=== PATIENT | male | born 1950 | race American Indian/Alaskan Native ===

== ENCOUNTER 2016-09-21 09:42 | Outpatient (CLI) | payer MEDICARE ==
--- NOTE | 2016-09-21 10:56 | Fluoroscopy Report ---
UGI INDICATION: Abdominal pain. COMPARISON: None similar. FINDINGS: Upper GI exam performed. Patient swallowed thick and thin barium without any difficulty and tolerated effervescent granules well. Lower cervical spine postsurgical changes noted. Esophagus is normal in course and caliber. No focal suspicious mucosal lesions. Small contrast column stasis along the distal esophagus noted despite upright positioning, incompletely emptying into the stomach with multiple swallows. No demonstrable hiatal hernia or gastroesophageal reflux however. Normal gastric contours without evidence of peptic ulcer disease. Normal duodenal bulb and appearance of the C-loop as well. CONCLUSION: Mild impaired esophageal peristalsis possible without other significant abnormality, as described. Thank you for the opportunity to participate in this patient's care.
--- NOTE | 2016-09-21 14:50 | XRay Report ---
CHEST 2 VIEWS INDICATION: Wheezing. COMPARISON: 07/19/2015 FINDINGS: PA and lateral chest radiographs demonstrate normal cardiomediastinal silhouette and clear, slightly hyperexpanded lungs. No pleural effusions or CHF. Slight aortic atherosclerotic calcifications, bony degenerative changes and partially imaged lower cervical postsurgical changes. CONCLUSION: No acute disease, stable. Thank you for the opportunity to participate in this patient's care.
== END 2016-09-21 09:43 | disposition home or self-care (01) ==
LOC: FLUORO 09:42
PROVIDERS: ATTEND Internal Medicine Gastroenterology
DX: R10.13 Epigastric pain (principal); I70.0 Atherosclerosis of aorta
CPT/HCPCS: 71020; 74241

== ENCOUNTER 2017-10-14 10:08 | Outpatient (CLI) | payer MEDICARE ==
--- NOTE | 2017-10-16 09:39 | Vascular Lab Report ---
LOWER EXTREMITY ARTERIAL DUPLEX: REASON FOR EXAM: Peripheral arterial disease. COMMENTS ON THE RIGHT: Triphasic waveforms are seen proximally. Monophasic waveforms are seen distally. The popliteal artery is occluded. Scattered plaque is seen throughout. Findings are consistent with abnormal perfusion. Findings are not consistent with the ability to heal distal wounds. COMMENTS ON THE LEFT: Triphasic waveforms are seen proximally. Monophasic waveforms are seen distally. Flow is limited in the dorsalis pedis artery. Scattered plaque is seen throughout. Findings are consistent with mildly abnormal perfusion. Findings are consistent with the ability to heal distal wounds. IMPRESSION: RIGHT: Popliteal artery occlusion. Flow is limited in the distal lower extremity. Recommend further evaluation. LEFT:Mildly abnormal arterial flow. Consider further evaluation.
== END 2017-10-14 10:09 | disposition home or self-care (01) ==
LOC: VAS 10:08
PROVIDERS: ATTEND Internal Medicine
DX: I70.213 Atherosclerosis of native arteries of extremities with intermittent claudication, bilateral legs (principal); I77.1 Stricture of artery; I10 Essential (primary) hypertension; J44.9 Chronic obstructive pulmonary disease, unspecified
CPT/HCPCS: 93925

== ENCOUNTER 2018-02-15 11:23 | Emergency (ER) | payer MEDICARE ==
--- NOTE | 2018-02-15 12:15 | XRay Report ---
FINAL REPORT EXAM: XR CHEST ROUTINE 2V HISTORY: Shortness of breath TECHNIQUE: 2 view examination of the chest PRIORS: None FINDINGS: Atherosclerotic change in the thoracic aorta. Degenerative change in the thoracic spine. There is no visible pulmonary consolidation, pleural effusion, or pneumothorax. Cardiac silhouette size is normal without vascular congestion. IMPRESSION: No evidence of acute cardiopulmonary disease
[2018-02-15 12:24] LABS: Basophils # (Auto) 0.1 K/mm3 (0.0-0.1); Basophils % (Auto) 1.6 % (0.0-1.8); Eosinophils # (Auto) 0.1 K/mm3 (0.0-0.4); Eosinophils % (Auto) 1.4 % (0.0-4.3); Hemoglobin 13.1 gm/dl (11.8-15.2); Lymphocytes # (Auto) 1.9 K/mm3 (1.2-5.4); Mean Corpuscular HGB Conc 33 % (32-34); Mean Corpuscular Hemoglobin 28 pg (28-32); Mean Corpuscular Volume 87 fl (84-94); Monocytes # (Auto) 0.5 K/mm3 (0.0-0.8); Monocytes % (Auto) 7.9 % (0.0-7.3); Platelet Count 265 K/mm3 (140-440); Red Blood Count 4.63 M/mm3 (3.65-5.03); Red Cell Distribution Width 16.7 % (13.2-15.2)
[2018-02-15 12:33] LABS: INR 0.94 (0.87-1.13)
[2018-02-15 12:34] LABS: Partial Thromboplastin Time 27.8 Sec. (24.2-36.6)
[2018-02-15 12:39] LABS: BUN/Creatinine Ratio 11; Blood Urea Nitrogen 9 mg/dL (9-20); Calcium 9.2 mg/dL (8.4-10.2); Hemolysis Index 2
[2018-02-15] MEDS ORDERED: MAGNESIUM SULFATE 2GM/50ML 2 GM/50 ML BAG IV ONE (13:18)
[2018-02-15] MEDS ORDERED: DUONEB *Not for PRN Use IH ONE (13:18)
--- NOTE | 2018-02-15 13:37 | Emergency Department Report ---
HPI - General Chief Complaint: Dyspnea/Respdistress Time Seen by Provider: 02/15/18 13:05 - HPI HPI: The patient is a 67-year-old male who presents for evaluation of dyspnea. The patient has a history of COPD, noncompliance, and continued tobacco use. He presents with complaint of constant severe dyspnea for the past week, exacerbated with exertion/physical activity or smoking. The patient denies fever, trauma to the chest, chest pain, syncope, hemoptysis, unilateral leg swelling, recent immobilization, history of DVT or PE, hx of recent cancer. ED Past Medical Hx - Past Medical History Previous Medical History?: Yes Hx Hypertension: Yes Hx COPD: Yes (does not take meds) Additional medical history: neuropathy, PVD, "Blockage in right leg" - Surgical History Past Surgical History?: Yes Additional Surgical History: neck surgey. leg surgery, PTCA of the right leg - Social History Smoking Status: Former Smoker Substance Use Type: Marijuana, Prescribed - Medications Home Medications: Home Medications Medication Instructions Recorded Confirmed Last Taken Type Hydrochlorothiazide [HCTZ] 25 mg PO QDAY #30 tablet 01/03/14 07/19/15 07/19/15 Rx Gabapentin [Gralise] 400 mg PO BID 11/21/14 07/19/15 07/19/15 History Azithromycin [Zithromax TAB] 250 mg PO QDAY #3 tablet 07/21/15 Unknown Rx Omeprazole [PriLOSEC] 20 mg PO QDAY #7 capsule. 07/21/15 Unknown Rx Prednisone [predniSONE 10 mg 10 mg PO .TAPER #1 tab.ds.pk 07/21/15 Unknown Rx (6-Day Pack, 21 Tabs)] ALBUTEROL Inhaler [ProAir HFA 2 puff IH QID PRN #1 inhalation 02/15/18 Unknown Rx Inhaler] Azithromycin [Zithromax Z-ALEK] 250 mg PO QDAY #6 tablet 02/15/18 Unknown Rx predniSONE [Deltasone] 20 mg PO QDAY #5 tab 02/15/18 Unknown Rx ED Review of Systems ROS: Stated complaint: BREATHING OFF Other details as noted in HPI Constitutional: denies: fever ENT: denies: throat or neck pain Respiratory: reports: cough, shortness of breath Cardiovascular: denies: chest pain Endocrine: denies unexplained weight loss or gain Gastrointestinal: denies: abdominal pain, nausea Genitourinary: denies: dysuria Musculoskeletal: denies: leg swelling Skin: denies: rash Neurological: denies: headache Hematological/Lymphatic: denies: easy bleeding or easy bruising Psych: denies sadness or hopelessness Physical Exam - Physical Exam Vital Signs: Vital Signs 02/15/18 02/15/18 11:26 13:16 Temperature 98.7 F Pulse Rate 88 60 Respiratory 22 13 Rate Blood Pressure 163/94 131/72 O2 Sat by Pulse 97 100 Oximetry Physical Exam: General: well-nourished, well-developed, no acute distress Head: Normocephalic, atraumatic Eyes: normal sclera ENT: Mucous membranes are pink and moist Neck: trachea midline, neck supple, No neck stiffness, no cervical adenopathy Respiratory: Severely diminished breath sounds and wheezing present throughout lung meek bilaterally Cardio: S1 and S2 present, no murmurs, rubs, gallops, capillary refill is brisk Abdomen: Normoactive bowel sounds, soft abdomen, no rigidity, no guarding or rebound tenderness Chest WALL/Back: No tenderness to palpation of the chest wall, no CVA tenderness with percussion Musc: No pitting edema Skin: No rash Neuro: no facial drooping, normal speech Psych: Normal affect ED Course Vital Signs 02/15/18 02/15/18 11:26 13:16 Temperature 98.7 F Pulse Rate 88 60 Respiratory 22 13 Rate Blood Pressure 163/94 131/72 O2 Sat by Pulse 97 100 Oximetry ED Medical Decision Making - Lab Data Result diagrams: 02/15/18 12:05 02/15/18 12:05 - Medical Decision Making The patient was seen and examined by myself. The patient is placed on a gambling monitor and continuous pulse ox. On initial evaluation, the patient was found to be in no distress. Evaluation orders were placed. The patient is given a breathing treatment and steroids for txt of COPD. Chest x-ray negative for focal consolidation, pleural effusions, pulmonary congestion, pneumothorax, or other acute cardio pulmonary disease process. Lab results are grossly not concerning. The patient was reevaluated and reported that their symptoms were markedly improved. On reexamination the patient is found to have normal respiratory rate and O2 sat on pulse oximetry, with no costal retractions or diminishment of breath sounds on auscultation. The patient is stable for discharge with outpatient follow-up. The patient is given follow-up and return instructions. The patient expressed understanding and agreed with the plan. The patient is discharged in stable condition. Critical care attestation.: If time is entered above; I have spent that time in minutes in the direct care of this critically ill patient, excluding procedure time. ED Disposition Clinical Impression: Acute exacerbation of chronic obstructive pulmonary disease (COPD), Upper respiratory infection, acute Disposition: DC-01 TO HOME OR SELFCARE Is pt being admited?: No Does the pt Need Aspirin: No Condition: Fair Instructions: Chronic Obstructive Pulmonary Disease (ED) Referrals: PRIMARY CAREMD [Primary Care Provider] - 3-5 Days Time of Disposition: 13:38
[2018-02-15] MEDS ORDERED: ZOFRAN IV ONE (13:58)
[2018-02-15] MEDS ORDERED: SUBLIMAZE IV ONE (13:58)
[2018-02-15] MEDS ORDERED: MAGNESIUM SULFATE 2 GM in NACL 0.9% 50 ML IV ONE (14:00)
--- NOTE | 2018-02-15 14:59 | Cat Scan Report ---
FINAL REPORT EXAM: CT ANGIO CHEST HISTORY: chest pain TECHNIQUE: CTA of chest with IV contrast. Coronal and sagittal and MIP reconstructed images provided. PRIORS: None currently available. FINDINGS: No pneumothorax. No effusion. No consolidation. No endobronchial lesion.. Severe emphysema. Minimal scarring in the periphery of both lungs. No honeycombing. No traction bronchiectasis. No centrilobular nodules. Main pulmonary artery is unremarkable. No pulmonary embolus. No aortic aneurysm. No dissection. Major branch arteries are within normal limits Heart size unremarkable. No pericardial effusion. Coronary artery disease. There is no axillary adenopathy. There is no hilar or mediastinal mass or adenopathy. No suspicious osseous lesions on this limited examination of the skeleton. Metastatic disease better evaluated with bone scan. Degenerative changes are present in the spine. IMPRESSION: Emphysema. No pulmonary embolus. No aortic aneurysm. No dissection.
[2018-02-15 18:52] LABS: Alanine Aminotransferase 18 units/L (7-56); Albumin 3.2 g/dL (3.9-5); Lipase 48 units/L (13-60)
[2018-02-15 19:09] LABS: Bilirubin,Direct < 0.2 mg/dL (0-0.2)
[2018-02-15 20:40] VITALS: BP 162/54
== END 2018-02-15 20:00 | disposition home or self-care (01) ==
LOC: ED 11:23
DX: J44.1 Chronic obstructive pulmonary disease with (acute) exacerbation (principal); J06.9 Acute upper respiratory infection, unspecified; I10 Essential (primary) hypertension; F12.10 Cannabis abuse, uncomplicated; Z87.891 Personal history of nicotine dependence
CPT/HCPCS: 36415; 71046; 71275; 80048; 80074; 82803; 83690; 83880; 84484; 85025; 85610; 85730; 93005; 93010; 94640; 96365; 96366; 96375; 99285; J2405; J2930; J3010; J3475; Q9967